=== PATIENT | male | born 1975 | race Two or more races ===

== ENCOUNTER 2025-06-11 17:14 | Emergency (ER) | payer OTHER ==
[~2025-06-11] VITALS: Ht 177.8 cm; Wt 136.0 kg
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
[2025-06-11] MEDS ORDERED: BACL20TA PO (18:41)
[2025-06-11 19:00] VITALS: BP 128/82; PULSE 91; RESP 18; TEMP 97.2; O2SAT 97
== END 2025-06-11 19:22 | disposition home or self-care (01) ==
LOC: ER 17:14
DX: S16.1XXA Strain of muscle, fascia and tendon at neck level, initial encounter (principal); M62.830 Muscle spasm of back; V43.52XA Car driver injured in collision with other type car in traffic accident, initial encounter; Y93.I9 Activity, other involving external motion; Y92.488 Other paved roadways as the place of occurrence of the external cause; Y99.8 Other external cause status